=== PATIENT | female | born 1965 | race Caucasian/White ===

== ENCOUNTER 2019-07-29 15:38 | Outpatient (CLI) | payer BC ==
--- NOTE | 2019-07-29 16:25 | ULT ---
EXAM: US Pelvic Transvag W Doppler PROVIDED CLINICAL HISTORY: Vaginal bleeding COMPARISON: None FINDINGS: Uterus measures about 6.9 x 5.5 x 3.8 cm and is retroverted. No focal abnormality of the uterine myom etrium is evident. Endometrial thickness is 5-6 mm. The right and left ovaries appear sonographically normal. Color Doppler and spectral analysis of the ovarian waveforms demonstrates normal flow bilaterally. There is no evidence for free pelvic fluid. IMPRESSION: Endometrial thickness is 5-6 mm.
== END 2019-07-29 15:39 | disposition home or self-care (01) ==
LOC: BICULT 15:38
DX: Z78.0 Asymptomatic menopausal state (principal); R93.89 Abnormal findings on diagnostic imaging of other specified body structures
CPT/HCPCS: 76856